=== PATIENT | male | born 1985 | race Two or more races ===

== ENCOUNTER 2018-11-29 02:38 | Emergency (ER) | payer OTHER ==
[~2018-11-29] VITALS: Ht 175.3 cm; Wt 77.1 kg
[2018-11-29 02:59] VITALS: BP 132/82
--- NOTE | 2018-11-29 03:04 | NUR ---
WILD MEJIA AT BEDSIDE TO [facility].
== END 2018-11-29 03:23 | disposition home or self-care (01) ==
LOC: ER 02:38
DX: S16.1XXA Strain of muscle, fascia and tendon at neck level, initial encounter (principal); S29.012A Strain of muscle and tendon of back wall of thorax, initial encounter; S39.012A Strain of muscle, fascia and tendon of lower back, initial encounter; S80.02XA Contusion of left knee, initial encounter; S80.01XA Contusion of right knee, initial encounter; V49.69XA Unspecified car occupant injured in collision with other motor vehicles in traffic accident, initial encounter; Y93.89 Activity, other specified; Y92.410 Unspecified street and highway as the place of occurrence of the external cause; Y99.8 Other external cause status

== ENCOUNTER 2019-01-06 13:55 | Emergency (ER) | payer OTHER ==
[~2019-01-06] VITALS: Ht 167.6 cm; Wt 87.5 kg
--- NOTE | 2019-01-06 14:05 | NUR ---
PT PRESENTED TO THE ER WITH A C/O SORE THROAT X 5 DAYS. PT IS C/O PRODUCTIVE COUGH WITH GREEN SPUTUM. PT IS AWAITING EVAL BY .
--- NOTE | 2019-01-06 14:07 | NUR ---
Dr Mancilla is at the bedside evaluating to the pt.
[2019-01-06] MEDS ORDERED: PENICILLIN G BENZATHINE 2.4 MMU/4 ML ML IM ONE ×2 (14:12→14:30)
[2019-01-06] MEDS ORDERED: IBUPROFEN 600 MG TABLET PO ONE ×2 (14:12→14:30)
[2019-01-06] MEDS ORDERED: DEXAMETHASONE SOLN 5 MG/5 ML UDC ONE (14:12)
[2019-01-06 14:28] VITALS: BP 120/64
--- NOTE | 2019-01-06 14:29 | NUR ---
Patient discharged to home in stable condition. Written and verbal after care instructions given. Patient verbalizes understanding of instruction AND RX. PT AMBULATED OUT WITH A STEADY GAIT. PT'S IS DRIVING PT HOME. VSS. NAD NOTED.
[2019-01-06] MEDS ORDERED: DEXAMETHASONE SOLN 5 MG/5 ML UDC PO ONE (14:30)
== END 2019-01-06 14:29 | disposition home or self-care (01) ==
LOC: ER 13:55
DX: J02.9 Acute pharyngitis, unspecified (principal)
CPT/HCPCS: 96372; 99283; J0558; J8540

== ENCOUNTER 2021-10-06 08:17 | Emergency (ER) | payer OTHER ==
[~2021-10-06] VITALS: Ht 170.2 cm; Wt 90.7 kg
[2021-10-06 08:36] VITALS: BP 126/81
--- NOTE | 2021-10-06 10:06 | NUR ---
Finger splint applied to affected are. Patient discharged to home in stable condition. Written and verbal after care instructions given. Patient verbalizes understanding of instruction.
== END 2021-10-06 10:08 | disposition home or self-care (01) ==
LOC: ER 08:21
DX: S60.021A Contusion of right index finger without damage to nail, initial encounter (principal); W21.02XA Struck by soccer ball, initial encounter; Y93.66 Activity, soccer; Y92.322 Soccer field as the place of occurrence of the external cause; Y99.8 Other external cause status
CPT/HCPCS: 73130-TC